=== PATIENT | male | born 1950 | race Caucasian/White ===

== ENCOUNTER 2022-05-14 14:04 | Outpatient (CLI) | payer MEDICARE, OTHER | END 2022-05-14 14:05 | disposition home or self-care (01) | LOC: BICRAD 14:04 | PROVIDERS: ATTEND Podiatrist | DX: M20.42 Other hammer toe(s) (acquired), left foot (principal); L98.9 Disorder of the skin and subcutaneous tissue, unspecified; M79.89 Other specified soft tissue disorders ==